=== PATIENT | female | born 1955 | race Caucasian/White ===

== ENCOUNTER 2021-01-12 15:16 | Inpatient (IN) | payer OTHER ==
[~2021-01-12] VITALS: Ht 162.6 cm; Wt 82.8 kg
[2021-01-12 20:01] VITALS: BP 165/77
--- NOTE | 2021-01-12 21:09 | NUR ---
PT IN ROOM IN BED WITH MASK COVERING EYES AND YELLING LOUDLY "HELP HELP HE WILL MURDER ME" WHEN NURSE ENTERED ROOM AT 194-REPORTED BY PREVIOUS SHIFT TO HAVE GOTTEN TO FLOOR AT 1815 AND CAME FROM ER-HAS BEEN YELLING SINCE ARRIVAL TO FLOOR. DID ALLOW VS BUT IS UYNCCOPERATIVE WITH HEAD TO TOE ASSESSMENT AND STATES SHE IS HERE TO GET BACK SURGERY. APPEARS TO BE HAVING AUDITORY HALLUCINATIONS REPORTING THAT SHE SEES A HYDABURG TRYING TO GET IN HER WINDOW. SPEECH IS SLIGHTLY SLURRED-REPORTED TO HAVE RECEIVED SHANAE JURADO IN ER. CONVERSATION RAMBLING,NON-GOAL DIRECTED. DENIES PAIN/DISCOMFORT . 96 HOUR HOLD INITIATED. PLACED ON FALLS PRECAUTIONS-UNABLE TO PROVIDE RELEVENT.COHESIVE MEDICAL HISTORY OR ASSESS GAIT D/T CLINICAL CONDITION AND UNCOOPERATIVE BEHAVIOR. 96 HOUR HOLD INITATED-AND PROVIDED WITH PT RIGHTS AT APPROX 2030.
--- NOTE | 2021-01-13 01:08 | NUR ---
CONTINUES TO YELL OUT FREQUENTLY FROM ROOM-WHEN STAFF ENTER ROOM BEGINS TO SING LOUDLY OR TALK INCOHERENTLY-DID AT ONE POINT REQUEST ICE AND AMBULATED TO BATHROOM WITH SBA X1-GAIT APPEARS STEADY WITHOUT ASSISTIVE DEVICES-BUT IS IMPULSIVE AND ERRATIC MOVEMENT AND BEHAVIORS-I.E ATTEMPTING TO CRAWL UP ON BED NEXT TO HERS WHICH IS ELEVATED AND ATTEMPTED TO SIT ON LEDGE BY WINDOW ALMOST PITCHING FORWARD TO FLOOR-OFFERED PO TRAZADONE SEVERAL TIMES AND REFUSES VEHEMENTLY-I DON'T TAKE ANY MEDICINE "I DON'T WANT TO SLEEP"WHEN PROVIDED WITH RIGHTS PER INVOLUNTARY PATIENT PULLED MASK DOWN OVER HER EYES AND PUT COVERS OVER HEAD AND REFUSED TO TAKE PAPER AND LOOK AT IT SO RIGHTS READ ALOUD BY THIS NURSE. BED EXIT ALARM ACTIVATED WILL MONITOR PER UNIT PROTOCOL.
[2021-01-13 09:01] VITALS: BP 140/72
--- NOTE | 2021-01-13 10:06 | NUR ---
Nutrition: pt admitted with unspecified psychosis, bipolar. PMH: cholecystectomy, COPD, HTN. No intake records yet, new admit. pt reports fair appetite. Ate 90% of breakfast this am. Pt voices appetite down due to a change in her Blood pressure medications. Not picky and likes most foods. No significant weight changes reported. Obese appearance. No height/weight taken on unit. Need to obtain. Will follow for any needed nutrition interventions but consider pt low risk at present.
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
--- NOTE | 2021-01-13 21:44 | NUR ---
PT OBSERVED LAYING ON THE BED, HALLUCINATING. SHE IS TALKING ABOUT HEAVEN AND HELL. STATES 'GET OUT OF MY ROOM" WHENEVER APPROACHED AND ASKED TO MOVE TO HER OWN BED. PT'S BEHAVIOR ESCALATING AND GETTING LOUDER. SHE SAYS 'IF YOU TOUCH ME I WILL KILL YOU". HALDOL X 1 ORDERED AND ADMISTERED. PT RECOGNISED THE OFFICER WHO CAME TO HELP.PT REFUSED TO GET THE SHOT AT FIRST THEN JUST RELAXED AND NO FORCE OR RESTRAINT WAS REQUIRED TO GIVE SHOT. UPON CHECKING ON PATIENT THEREAFTER, PT WAS LYING STILL AND QUIET. SHE TOLD ME " I LOVE YOU, YOU GAVE ME THAT SHOT AND I KNOW AM GONNA " SHE STILL REFUSES TO MOVE TO HER OWN BED. SHE ALSO REFUSES TO TAKE HER HS MEDICATION.
[2021-01-14 12:04] LABS: ALBUMIN 3.5 g/dL (3.4-5.0); CHOLESTEROL 102 mg/dL (<200); DIRECT BILIRUBIN 0.1 mg/dL (<0.1-0.2); HDL CHOLESTEROL 38 mg/dL (>40); LDL CHOLESTEROL 41 mg/dL (<100); SGOT 27 U/L (15-37); SGPT 36 U/L (30-65); TC:HDL 2.7 Ratio (Not establshd); TOTAL BILIRUBIN 0.4 mg/dL (0.2-1.0); TOTAL PROTEIN 6.8 g/dL (6.4-8.2); TRIGLYCERIDE 118 mg/dL (<150); VLDL 24 mg/dL (<40)
--- NOTE | 2021-01-14 15:55 | NUR ---
PT ALERT TO SELF ONLY. PT VERY AGITATED MIDMORNING. REFUSED PO MEDICATIONS THIS SHIFT. PRN IM INJECTION GIVEN FOR AGITATION. PT ALSO WAS PLAYING IN HER FECES. PT DID NOT ANSWER ANY ASSESSMETS QUESTIONS. STAYED IN ROOM THIS SHIFT. ALSO REFUSED MEALS. WILL CONTINUE TO MONITOR.
[2021-01-14 19:52] VITALS: BP 125/62
--- NOTE | 2021-01-15 04:00 | NUR ---
Pt. has rested quietly during the night when checked on during frequent rounds. Went to check on patient to see if she needed some assistance with toileting and she cursed at this nurse. Pt. would not let me near her and told me to get out of her room.
[2021-01-15 05:36] LABS: GLYCOHEMOGLOBIN (HGB A1C) 7.1 % (4.8-5.6)
[2021-01-15 08:00] VITALS: BP 154/81
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
--- NOTE | 2021-01-15 12:43 | NUR ---
Alert and orientated X4. Obstinate this AM. Incontinent, agreed to take shower. Linens obtained. When entered bathroom to give towels ect she tried to wipe toilet paper with stool on staffs face. When asked why she stated, "Because you didn't knock." When given H2O with 1100 med she took a sip and then poured remainder on floor stating, "You told me to do it." Denies SI/HI. Needy at times requesting assistance with ADLs that she has done previously without difficulty. States she can't walk and demands to be pushed in WC but then was found on elevated bed that she climbed onto. Does ambulate with walker when she wants to, regular, steady gait that is sometimes rapid. Breath sounds clear. Reg HR auscultated. Color pink with brisk capillary refill and palpable peripheral pulses. Yellow urine per toilet. Active bowel sounds over large, rounded abdomen. Large soft brown stool per pants. Resistant to getting changed. Assisted with changing clothes, took shower with minimal assistance. With last wipe scant amt reddish drainage per washcloth. Ate minimal amt for lunch.
[2021-01-15 14:38] LABS: HEMOGLOBIN 12.7 gm/dL (12.0-15.0); MCH 28.2 pg (26.0-34.0); MCHC 32.7 g/dL (28.0-37.0); MCV 86.3 fL (80.0-100.0); RBC 4.51 mil/uL (4.20-5.00); RDW 14.8 % (10.5-14.5); WBC 10.5 thou/uL (4.0-11.0)
[2021-01-15 14:54] LABS: CALCIUM 9.3 mg/dL (8.5-10.1); MAGNESIUM 2.3 mg/dL (1.8-2.4); POTASSIUM 3.7 mmol/L (3.5-5.1)
--- NOTE | 2021-01-15 16:27 | NUR ---
SW attempted to meet with Pt 1 on 1. Pt was sleep. Pt did awake to her name however stated she would like to sleep. SW left room so Pt could continue to sleep.
[2021-01-15 19:34] VITALS: BP 116/60
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
--- NOTE | 2021-01-16 00:24 | NUR ---
AWAKE AND WANDERING IN HALLWAYS HAS REQUESTED ICE CREAM MULTIPLE TIMES AND WHEN INFORMED SHE COULD HAVE AN ICE CREAM IF SHE TOOK HER SLEEP MEDICINE SO SHE WOULDN'T BE UP ALL NIGHT -TRAZADONE 50MG REMOVED FROM [facility] PT SHE PUTS IN MOUTH AND THEN SPIT IT OUT ON FLOOR STATING "OH I JUST REMEBERED IM ALLERGIC TO THAT ONE IT MAKES ME THROW UP" "I TOOK IT AT ONE OF THE OTHER HOSPITALS I WAS AT." "-
--- NOTE | 2021-01-16 04:49 | NUR ---
LYING IN BED YELLING FOR ICE CREAM AND WATER-APPEARS TO HAVE BEEN AWAKE SINCE APPROX. O400 AND SITTING ON SIDE OF BED TO BATHROOM ETC.
[2021-01-16 06:03] LABS: HEMATOCRIT 39.5 % (37.0-47.0); HEMOGLOBIN 13.2 gm/dL (12.0-15.0); MCHC 33.5 g/dL (28.0-37.0); MCV 86.6 fL (80.0-100.0); RBC 4.56 mil/uL (4.20-5.00); WBC 10.5 thou/uL (4.0-11.0)
[2021-01-16 06:15] LABS: CALCIUM 9.6 mg/dL (8.5-10.1); CREATININE 1.1 mg/dL (0.6-1.0); MAGNESIUM 2.3 mg/dL (1.8-2.4); POTASSIUM 3.6 mmol/L (3.5-5.1)
--- NOTE | 2021-01-16 08:30 | EKG ---
[place] [address] [facility] [place] [address] ELECTROCARDIOGRAM REPORT Name: GREG REARDON Room #: [facility] ADM IN M.R.#: [id number] Admission: 01/12/21 Attend Phys: Jacques Trimble DO Discharge: Date of : 53 Report #: [id number] [facility] Test Date: 2021-01-14 Test Time: 10:25:59 Pat Name: GREG REARDON Department: Room: [facility] B Gender: F Plumber Assistant: UMAIR : 1955 Requested By: Chloé Harrington Order Number: [id number] MD: Sebastien Guillen Measurements Intervals [place] Rate: 89 P: 55 OR: 153 QRS: -2 QRSD: 80 T: -15 QT: 363 QTc: 442 Interpretive Statements Sinus rhythm Inferior infarct, age indeterminate No previous ECG available for comparison Electronically Signed On 01-16-2021 8:30:22 CDT by Sebastien Guillen [email or web address] <ELECTRONICALLY SIGNED> By: Sebastien Guillen MD, [facility] 01/16/21 0830 1025 1025 Sebastien Guillen MD, FACC /EPI
[2021-01-16 09:21] VITALS: BP 118/63
[2021-01-16 13:38] VITALS: BP 118/63
--- NOTE | 2021-01-16 15:35 | NUR ---
TABBY and Dr. Trimble spoke with pt's about her behavior this past weekend. He again said that she has had several psych admissions for her behaviors. He also mentioned that she has a psych provider at [facility] but does not always follow through with their treatment plan. TABBY advised that when pt clears up, that maybe pt can sign a DPOA form if she chooses to help with any future issues in the hospital with pt. agreed. SW team will continue to follow pt during her stay on this unit.
[2021-01-16 20:00] VITALS: BP 158/80
[2021-01-16 20:08] VITALS: BP 158/80
[2021-01-16 21:41] LABS: URINE BILIRUBIN NEGATIVE (Negative); URINE BLOOD NEGATIVE (Negative); URINE CLARITY CLEAR; URINE COLOR YELLOW; URINE GLUCOSE-RANDOM* NEGATIVE (Negative); URINE KETONES NEGATIVE (Negative); URINE NITRITE-REFLEX NEGATIVE (Negative); URINE PROTEIN (DIPSTICK) NEGATIVE (Negative); URINE SPECIFIC GRAVITY <= 1.005 (1.005-1.035); URINE UROBILINOGEN 0.2 E.U./dl (0.2-1.0)
[2021-01-16 21:55] LABS: URINE LEUKOCYTES-REFLEX 1+ (Negative)
[2021-01-16 22:08] LABS: SQUAMOUS 0-3 Few /LPF (0-3); URINE WBC-REFLEX 6-15 Few /HPF (0-5)
[2021-01-16 22:09] LABS: BACTERIA-REFLEX 1-9 Few /HPF (None Seen); CASTS None Seen /LPF (None Seen); CRYSTALS None Seen /LPF (None Seen); MUCUS 0-3 Light strn/LPF (None Seen); URINE RBC 1-2 Rare /HPF (NONE SEEN)
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
[2021-01-17 09:01] VITALS: BP 96/63
--- NOTE | 2021-01-17 11:07 | NUR ---
SW reviewed pt's nursing notes for discharge planning purposes. SW team will continue to follow pt during her stay on this unit.
--- NOTE | 2021-01-17 17:41 | NUR ---
Assumed pt care at 0700. pt was alert and oriented to person, place and situation. calm and co-operative with care. Assessments completed, vss. pt took meds whole, no difficulty noted. Denies si/hi, denies pain. no sign of acute distress noted upon assessments. AMBULATE with a walker. PARTICIPATED IN GROUPS. make needs known to staff. 3 unit of Insulin administered for Blood sugar of 161. AT this time pt is in the day room relaxing. Blood pressure meds held this AM for low BP. will continue to monitor.
[2021-01-17 20:00] VITALS: BP 118/66
[2021-01-17 20:43] VITALS: BP 118/66
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
--- NOTE | 2021-01-18 06:35 | NUR ---
PATIENT REPORTS FEELING CONSTIPATED. COMPPLAINING OF CRAMPS IN LOWER RIGHT ABDOMEN AND LOW RIGHT BACK. GAVE PRN DOSE MOM. ENCOURAGED PATIENT TO INCREASE FLUIDS.
[2021-01-18 09:37] VITALS: BP 142/67
[2021-01-18 19:09] VITALS: BP 126/56
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
[2021-01-18 23:26] VITALS: BP 126/56
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
--- NOTE | 2021-01-19 02:06 | NUR ---
PATIENT CONTINUING TO COMPLAIN OF HEADACHE. MEDICATED WITH PRN TYLENOL. ASSISTED PATIENT WITH POSITIONING FOR COMFORT, UPPER SIDERAILS X 2. PATIENT STATED SHE FELT SHE COULD REST NOW.
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
--- NOTE | 2021-01-19 06:33 | NUR ---
PATIENT WOKE UP ABOUT 0605 AND BEGAN REQUESTING MEDICATION FOR A HEADACHE AND INDIGESTION. PATIENT WAS AMBULATORY TO THE DAYROOM USING WALKER, PATIENT IS STATING, "I SURE DIDN'T SLEEP VERY MUCH". PULLED MORNING DOSE OF CARAFATE AND PRN DOSE MYLANTA, WENT TO DAYROOM AND PATIENT HAD RETURNED TO HER ROOM. SHE WAS LYING WITH HER HEAD AT THE FOOT OF THE BED, STATING, "I CAN'T GET UP TO TAKE THAT, I'M TO SICK, I"M GONNA VOMIT AND MY HEAD HURTS". INFORMED PATIENT I HAD HER CARAFATE, AND SOME MYLANTA TO EASE HER STOMACH, SHE COULD NOT HAVE TYLENOL FOR ALMOST ANOTHER 2 HOURS. SHE LEANED UP ON HER ELBOW, AND DRANK 1/2 OF THE MYLANTA, AND ONE BITE OF THE CARAFATE, SHE STATED "I COULDN'T EAT ANY MORE SHE WAS TO SICK." PATIENT LAID BACK DOWN TO REST. APPROXIMATELY 10 MINUTES LATER, PATIENT WAS WALKING TO DAYROOM, SMILING, TELLING STAFF GOOD MORNING AND BEING VERY TALKATIVE WITH PEERS.
[2021-01-19 10:12] VITALS: BP 136/57
--- NOTE | 2021-01-19 15:08 | NUR ---
Dr. Trimble asked TABBY to schedule a family meeting with pt's and son. TABBY contacted [place] and scheduled a family meeting for 01/20/2021 @1130am. TABBY team will continue to follow pt during her stay on this unit.
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
[2021-01-19 19:42] VITALS: BP 132/86
[2021-01-19 20:20] VITALS: BP 132/86
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
--- NOTE | 2021-01-20 06:28 | NUR ---
PATIENT RERASSESSED AND FALL SCORE ONLY 30, NO LONGER HIGH RISK FOR FALL. PLAN OF CARE COMPLETED FOR HIGH FALL RISK. PATIENT GAIT STABLE WITH WALKER, PATIENT AWARE OF SURROUNDINGS AND CONSITENTLY USING WALKER TO AMBULATE AND VERBALIZES UNDERSTANDING OF NEED FOR NON-SLIP SOCKS AND WALKER FOR SAFETY.
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
--- NOTE | 2021-01-20 08:23 | NUR ---
Nutritio f/u: No new wt. Intake about 75% or more avg recent meals. Albumin WNL, Cr 1.1. Meds reviewed. BG 123-130. No acute nutrition concerns noted. Continues at low nutrition risk.
[2021-01-20 09:47] VITALS: BP 141/72
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
--- NOTE | 2021-01-20 14:51 | NUR ---
TABBY was told this morning at 11:50 by staff that pt's son and went all the way to [facility]. TABBY received a call from the assistant front desk manager; pt's Koffi was on the phone stating he was here. TABBY asked him to come up so he can see his , and that Dr. Trimble was assessing another pt but could meet with him after. TABBY provided this update to Dr. Trimble. TABBY helped rouse pt out of her room to see her and son. When she saw them she responded "they are not supposed to be here." SW asked why. She did not give an explaination and pt initially looked like she was confused if she can stay and go. She then said "no they are not supposed to be here." She then walked away and said "tell Desmond and Koffi I said hi." Then walked into the common area. Shortly after Dr. Ireland met with both Koffi and Desmond. SW team will continue to follow pt during her stay on this unit.
[2021-01-20 19:56] VITALS: BP 119/72
--- NOTE | 2021-01-20 23:17 | NUR ---
GREG APPEARS WELL GROOMED AND IS DRESSED IN HOSPOITAL GOWNS. SHE HAS YELLOW FALL SHIRT ON AND YELLOW NON SKID SOCKS ON. SHE IS A HIGH FALL RISK AND AMBULATES WITH A WALKER. HER BED IS IN THE LOWEST POSITION AND SIDE RAILS X2. SHE PRESENTS WITH A LABILE AFFECT AND HER MOOD IS INCONGRUENT. SHE APPEARS PARANOID AND ENDORSES DELUSIONS THAT POEPLE ARE POISIONING HER. SHE WAS REORIENTED THAT STAFF ARE HERE TO HELP AND THIS IS A SAFE ENVIORNMENT. SHE REFUSED HER HS MEDICATIONS AFTER THE EDCUATION. SHE STATED "I CANNOT HANDLE ANYMORE OF THEM PILLS. YOU ALL ARE TRYING TO KILL ME". PT. ONCE AGAIN EDUCATED AND REASSURED SHE IS SAFE HERE. SHE WAS COOPEARATIVE WITH HER ASSESSMENT AND CURRENTLY DENIES ANY PAIN. SHE DENIED ANY SI/HI/AH/VH. WHEN ASKED TO DESCRIBE HER MOOD SHE STATED "TIRED". GREG HAS BEEN IN AND OUT OF HER ROOM THROUGHOUT THIS EVENING. WILL CONTINUE TO MONITOR AND FOLLOW PLAN OF CARE. SHE CONTINUES ON Q12 MIN SAFETY ROUNDS PER PROTOCOL.
[2021-01-21 08:55] VITALS: BP 121/55
--- NOTE | 2021-01-21 17:36 | NUR ---
0700 ASSUMED CARE OF PATIENT, PATIENT UP AMB IN SHERIFF WITH WALKER. AMB WITH STEADY GAIT. ATE 40% OF BREAKFAST. MEDICATIONS TAKEN WHOLE WITHOUT DIFFICULTY. PATIENT REFUSING TO ATTEND GROUP, RN HEMATOLOGY AND DR TO PATIENT ROOM. PATIENT LYING IN BED STATING "MY HIP HURTS, I CAN NOT MOVE", "PLEASE HELP ME". PATIENT ASKED TO COME TO GROUP. PATIENT STANDS WITHOUT HELP AND AMB TO GROUP UPSET. PATIENT ATTENDS GROUP FOR A FEW MIN THEN LEAVES. LS CLEAR, BS ACTIVE, NO C/O PAIN AT THAT TIME. REFUSES MEDICATION PER DRS ORDER. PATIENT TELLS DR "I WILL NOT TAKE THAT". SOME PRESENCE OF PARANOIA REGARDING MEDICATIONS AND FEAR OF FAMILY HERE TO SEE HER. BLOOD SUGARS WNL WITH NO INSULIN GIVEN. MOVES FROM PLACE TO PLACE, DENIES ANXIETY. DENIES SI/HI. VS 1730 PATIENT SITTING IN CHAIR IN DAYROOM CALLS WRITE OVER AND STATES "I AM UPSET I COULD NOT ATTEND MY SISTERS , SHE A FEW DAYS AGO". PATIENT THEN GETS UP AND WALKS AWAY.
[2021-01-21 20:25] VITALS: BP 126/69
--- NOTE | 2021-01-22 01:30 | NUR ---
PT AT NURSING STATION COMPLAINING OF PAIN IN HER RIGHT HIP. PT GIVEN PRN TYLENOL 650MG PER ORDER.
--- NOTE | 2021-01-22 01:32 | NUR ---
ASSUMED CARE OF PATIENT AT 1900. GREG APPEARS DISHEVELED AND IS DRESSED IN A HOSPITAL GOWN. SHE PRESENTS WITH A LABILE AFFECT AND DESCRIBES HER MOOD "JUST TRYING TO MAKE IT THROUGH". HER PHYSCIAL ASSESSMENT HAD NO ACUTE CHANGES. SHE DOES COMPLAIN OF SOME RIGHT HIP DISCOMFORT. SHE IS AMBULATING WITH A WALKER AND WEARS NON SKID SOCKS. SHE DENIED ANY THOGUHTS OF SELF HARM OR HARMING OTHERS. SHE DOES REPORT ANXIETY RATED 2/10 AND DEPRESSION 3/10. WHEN PRESENTED WITH HER HS MEDICATION SHE STATED "I AM NOT GOING TO TAKE ANY OF THOSE MEDICAITONS". AFTER SOME ENCOURAGEMENT SHE DID TAKE HER SENNA BUT REFUSED HER LORAZEPAM. AROUND 2200 PT. APPROACHED THIS RN AND ASKED TO TAKE LORAZEPAM. PT GIVEN LORAZEPAM AT THAT TIME. GREG AHS BEEN UP MOST OF THE SHIFT AND OFTEN ASKS FOR FOOD. SHE IS EDUCATED ON FOOD SCHEDULE AND NEED FOR COMPLIANCE WITH HER DIABETES. PT. VERBALIZED UNDERSTANDING. WILL CONTINUE TO MONITOR AND FOLLOW PLAN OF CARE. Q 12 MIN SAFETY ROUNDS PER PROTOCOL.
[2021-01-22 09:49] VITALS: BP 124/66
[2021-01-22 10:26] VITALS: BP 124/66
--- NOTE | 2021-01-22 13:45 | NUR ---
1300 RESUMMED CARE FROM OVERNIGHT SHIFT THIS AM, PATIENT IN DAY ROOM WAITING ON BREAKFAST. PATIENT ALERT ORIENTED TIMES 3 PATIENT CALM COOPERATIVE TOOK MEDICATION WITHOUT INCIDENCE. PATIENT DENIES SI/HI/AH/VH AT PRESENT PATIENTS ABDOMEN SOFT BOWEL SOUNDS PRESENT. PATIENTS LUNGS CLEAR PATIENT HAS BEEN PARTICIPATING IN GROUPS. WILL CONTINUE TO MONITOR PATIENT FOR SAFETY AND BEHAVIORS.
[2021-01-22 19:06] VITALS: BP 131/75
[2021-01-22 20:01] VITALS: BP 131/75
--- NOTE | 2021-01-23 03:37 | NUR ---
Assumed care on 01/22/21 @ 19:15, seated in the day room. A&Ox4 when offered medications, yelled out, I aint taking no lithium. Reoriented to the medications offered, she was able to swollow meds whole with water, until she came to tylenols. She refused to take, and asked that the tablets be cut in half. This was done and offered with pudding. the patient sucked the pudding off the tablets and spit them out. She asked for crushed in applesauce, which was provided. Tylenol 650 for back pain of 6/10, upon follow up assessment was noted to be sleeping. In bed, eyes closed, respirations even and unlabored. Will continue to monitor as per unit protocol for safety and comfort.
[2021-01-23 09:11] VITALS: BP 137/111
[2021-01-23 09:16] VITALS: BP 132/82
--- NOTE | 2021-01-23 10:38 | NUR ---
1030 RESUMMED CARE FROM OVERNIGHT SHIFT THIS AM, PATIENT IN DAY ROOM SITTING QUIET. PATIENT ATE BREAKFAST TOOK MEDICATION WITHOUT INCIDENCE PATIENT ALERT ORIENTED TIMES 4. PATIENT DENIES SI/HI/AH/VH AT PRESENT PATIENTS LUNGS CLEAR BOWEL SOUNDS PRESENT. PATIENT CALM COOPERATIVE PARTICIPATES IN GROUPS PATIENT DENIES ANXIETY OR DEPRESSION. WILL CONTINUE TO MONITOR PATIENT FOR SAFETY AND BEHAVIORS.
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
[2021-01-23 19:54] VITALS: BP 140/70
--- NOTE | 2021-01-24 04:07 | NUR ---
GREG APPEARS WELL GROOMED AND IS DRESSED APPROPRIATE. SHE PRESENTS WITH A FULL AFFECT AND DESCRIBES HER MOOD "GETTING BETTER". SHE DENIES ANY THOUGHTS OF SELF HARM OR HARMING OTHERS. SHE REPORTED ANXIETY RATED 10/10 AND DEPRESSION RATED 6/10. SHE DENIED ANY AUDITORY OR VISUAL HALLUCINATIONS. HER PHYSICAL ASSESSMENT WAS NEGATIVE, LUNG SOUNDS CLEAR, HEART SOUNDS S1 S2 AND REGULAR, BOWEL SOUNDS ACTIVE AND ABDOMEN ROUND AND NON TENDER. GREG DOES REPORT SOME PAIN IN HER RIGHT HIP AND RATES IT 5/10. SHE WAS GIVEN PRN TYLENOL 650MG AND AURELIA-MERINO CREAM. MEDICATIONS WERE EFFECTIVE. SHE IS ALERT AND ORIENTED X 4. WILL CONTINUE TO MONITOR AND FOLLOW PLAN OF CARE. Q 12 MIN CHECKS PER PROTOCOL.
[2021-01-24 09:48] VITALS: BP 142/107
--- NOTE | 2021-01-24 12:21 | NUR ---
TABBY contacted Denise again. No answer. TABBY left a msg. SW team will continue to follow pt during her stay on this unit.
--- NOTE | 2021-01-24 14:47 | NUR ---
0700 ASSUMED CARE OF PATIENT, PATIENT AMB WITH WALKER WITH STEADY GAIT. MEDICATION TAKEN WHOLE WITHOUT DIFFICULTY. LS CLEAR, BS ACTIVE, NO C/O PAIN AT THAT TIME. NO DELLUSION NOTED. PATIENT CALM AND COOPERATIVE. DENIES SI/HI. WILL CONTINUE TO OBSERVE
[2021-01-24 19:43] VITALS: BP 156/99
--- NOTE | 2021-01-25 05:17 | NUR ---
01-24-21 CARE TRANSFERRED 1899 OBSERVED PT SITTING IN RECLINER IN DAY ROOM. LATER PT AAOX4, VSS, RR EVEN AND NONLABRED ON RA. PT DENIES SI/HI, PT REPORTS PAIN IN RIGHT HIP AND SCORES 8 ON 0-10 SCALE. PT PRESENTS PLESANT, CALM AND COOPERATIVE, BUT BECOMES TEARFUL WHEN SPEAKING ABOUT HER EXHUSBAND. DURING MEDICATION ADMIN PT HAD NO DIFFICULTIES TAKING PILLS WITH WATER. LATER PT PIAN WAS REASSESSED AND PT SCORED 4 ON 0-10 SCALE, PT BED WAS ADJUSTED FOR COMFORT. LATER PT REPORTED NOT BEING ABLE TO SLEEP AND PRN WAS GIVEN. LITTLE LATER PT REPORTED HER ROOM WAS COLD, TEMP WAS ADJUSTED FOR PT COMFORT. LATER NOTED PT RESTING WITH EYES CLOSED. ZERO S/S OF ACUTE DISTRESS NOTED, PT WILL CONTINUE TO BE MONITOR PER [facility] PROTOCOL.
[2021-01-25 09:03] VITALS: BP 150/79
[2021-01-25 09:31] VITALS: BP 150/79
--- NOTE | 2021-01-25 11:08 | NUR ---
TABBY and Dr. Trimble met with pt to establish a d/c plan. Dr. Trimble asked pt if it is still her position to not go home with her son and . Pt said she does not want to go there, and instead woudl like to go to her daughter Denise's house. SW explained that she has called Denise repeatedly and left several messages, but she has not returned any of SW calls. Pt told SW to keep trying. SW asked if she cannot get ahold of Denise, is pt prepared to go to a homeless usp. Initially pt said that's fine. SW then provided education on what homeless shelters are like, and pt initially wanted to and then recanted that. Dr. Trimble explained that pt will discharge home, and pt can go wherever she chooses after that. She agreed. Dr. Trimble agreed to discharge on Saturday. SW team will continue to follow pt during her stay on this unit.
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
[2021-01-25 19:04] VITALS: BP 141/84
--- NOTE | 2021-01-26 04:26 | NUR ---
01-25-21 CARE TRANSFERRED 1899 OBSERVED PT WALKING IN HALLWAY WITH WALKER, GAIT STEADY. LATER PT AAOX4, VSS, RR EVEN AND NONLABORED ON RA. PT DENIES SI/HI AND REPORTS PAIN IN RIGHT HIP SCORES 8 ON 0-10 SCALE. PT PRESENTS PLESANT, CALM AND COOPERATIVE. PT COMMUNICATING AND OFTEN HAS FLIGHT OF IDEAS. LATER PT REPORTED ABOUT HER DAUGHTER NOT HAVING ROOM AND SHARED HER CONCERNS ABOUT WHERE SHE IS GOING. PT REPORTED WHAT HCP AND REGISTERED NURSE BEH[facility]IORAL HEALTH SPOKE ABOUT. LATER PT CAME BACK AND SPOKE AGAIN AND STATED SHE WILL OPEN COMMUNICATION WITH AND SON. ZERO S/S OF ACUTE DISTRESS NOTED, PT WILL CONTINUE TO BE MONITOR PER [facility] PROTOCOL.
[2021-01-26 09:50] VITALS: BP 125/70
[2021-01-26 10:16] VITALS: BP 125/70
--- NOTE | 2021-01-26 10:46 | NUR ---
RT Progress Note- Ira has continued to be active in recreation therapy groups during this review period. She is socially appropriate overall and presents little delusions, in which she is easily redirected from. Ira continues to specifically request to listen to music which she very much enjoys. MATE CHIEF will continue to encourage this participation.
--- NOTE | 2021-01-26 11:37 | NUR ---
1135 RESUMMED CARE FROM OVERNIGHT SHIFT THIS AM, PATIENT IN ROOM LYING QUIET. PATIENT CAME TO DAY ROOM ATE BREAKFAST TOOM MEDICATION WITHOUT INCIDENCE. PATIENT ALERT ORIENTED TIMES 3 PATIENT PATIENTS ABDOMEN SOFT BOWEL SOUNDS PRESENT. PATIENTS LUNGS CLEAR PATIENT PARTICIPATES IN GROUP PATIENT WANTS TO KNOW WHEN SHE CAN LEAVE. PATIENT DENIES SI/HI/AH/VH AT PRESENT WILL CONTINUE TO MONITOR PATIENT FOR SAFETY AND BEHAVIORS.
[2021-01-26 19:15] VITALS: BP 123/78
[2021-01-26 20:49] VITALS: BP 123/78
--- NOTE | 2021-01-27 04:08 | NUR ---
Upon assessment patient sitting in her room at approx 2015 hrs on 01/26/21. Patient is alert/oriented x4. She has good eye contact and is pleasant. Pt is well groomed. She is wearing yellow t-shirt and socks and is ambulating with walker. She denies any Anxiety, depression, SI/HI, hallucinations. She states she is very happy because she had a discussion with her hsb and son and they are wanting her to come back home. She states her son is disabled and lives at home. She rates chronic hip pain 7/ but declines pain med atthat time. She later did come to the desk and ask for Tylenol and it was administered. Pt did come to Nurse's area once and ask if she could have a few packets of crackers, stated she couldn't sleep because she was hungry. patient given some crackers and she returned to bed after eating them in the day room. Patient declined her Senna tablets this pm and stated she didn't need them because she had been having regular bm's. This Nurse explained that the Senna will help her continue to be regular and she still declined. Pt also stated that she was given a medication around 5pm this shift that made her "feel drugged" and she stated she does not want to take that medication anymore. Patient physical assessment was unremarkable and she required no coverage of insulin- BS 99. Patient was social with peers and staff as well as compliant with all care this shift. Will continue to monitor and follow plan of care. Q 12 min safety checks per protocol.
--- NOTE | 2021-01-27 08:40 | NUR ---
TABBY contacted Denise. No answer. TABBY left a msg. SW team will continue to follow pt during her stay on this unit.
--- NOTE | 2021-01-27 09:24 | NUR ---
Nutrition followup: pt continues on [facility] unit with unspecified psychosis. Eats well, 75-100% of meals on regular diet. BG controlled. No weight loss. BM 01/26 Continue as low nutrition risk.
[2021-01-27 09:30] VITALS: BP 151/61
--- NOTE | 2021-01-27 19:36 | NUR ---
0700 ASSUMED CARE OF PATIENT, PATIENT IN BED AT THAT TIME. PATIENT ASKED TO COME OUT FOR BREAKFAST. AMB WITH STEADY GAIT USING WALKER. DENIES PAIN AT THAT TIME, LS CLEAR, BS ACTIVE. LBM 01/27/21. ABD SOFT AND ROUND. MEDICATION TAKEN WHOLE WITHOUT DIFFICULTY. AFTERNOON MEDS REFUSED PATIENT STATES "MEDICATION MAKES ME FEEL BAD". BOTH LITHIUM AND OLANZAPINE REFUSED TODAY. LATER PATIENT ASKS FOR ROOM TO BE OPENED AND STATES "IF YOU OPEN IT I MIGHT TAKE MY MED" THEN SAYS "MAYBE I WILL AND MAYBE I WONT" CONTINUES THIS SAYING MULTIPLE TIMES UNTIL LINE SERVICE TECHNICIAN WALKS AWAY. PATIENT TO ROOM AND LAYS DOWNS AFTER LAST MEAL.
[2021-01-27 21:00] VITALS: BP 136/76
--- NOTE | 2021-01-28 03:06 | NUR ---
Patient initial assessment at approx 2100 hrs. Patient in day room alert/oriented x4, good eye contact and well groomed. She denied any complaints other than chronic right hip pain rated 10/10. Patient given Tylenol for pain and was able to sleep later. She has been compliant with all care, declined her pm Senna, stated she didn't need it. She has been social with staff and had no behaviors this shift. Will continue to monitor and follow plan of care. Q 12 min safety checks per protocol.
[2021-01-28 08:42] VITALS: BP 159/70
--- NOTE | 2021-01-28 16:41 | NUR ---
0700 ASSUMED CARE OF PATIENT, PATIENT IN BED AT THAT TIME. AMB WITH STEADY GAIT. DENIED PAIN THIS AM. MEDICATION TAKEN WHOLE WITHOUT DIFFICULTY. LS CLEAR, BS ACTIVE. ABD SOFT AND ROUND. PATIENT REFUSING SOME OF HER MEDICATION (SEROQUEL AND LITHIUM). PATIENT CALM AND COOPERATIVE. DENIES SI/HI.
[2021-01-28 21:30] VITALS: BP 119/51
--- NOTE | 2021-01-29 04:53 | NUR ---
ASSUMED CARE OF PT AT APPROX 1910 HRS ON 01/28/21. PT ALERT/ORIENTED X4. PT AMBULATING WITH WALKER, STEADY GAIT WEARING YELLOW T-SHIRT, YELLOW SOCKS. GOOD EYE CONTACT AND PLEASANT. PT DENIED ANY DEPRESSION, ANXIETY, SI/HI,HALLUCINATIONS. SHE DOES C/O CHRONIC LOWER BACK PAIN 05/12. SHE STATES SHE IS EXCITED TO POSSIBLY GO HOME EITHER SATURDAY OR SATURDAY. PT IS WELL GROOMED AND COMPLIANT WITH ALL CARE. SHE CONTINUES TO DECLINE HER PM SENNA, STATES SHE DOES NOT NEED IT. WILL CONTINUE TO MONITOR AND FOLLOW PLAN OF CARE. Q 12 MIN SAFETY CHECKS PER PROTOCOL.
[2021-01-29 08:55] VITALS: BP 129/61
--- NOTE | 2021-01-29 15:33 | NUR ---
0700 ASSUMED CARE OF PATIENT, PATIENT IN BED AT THAT TIME. AMB WITH WALKER WITH STEADY GAIT. MEDICATION TAKEN WHOLE WITHOUT DIFFICULTY. DOES REFUSE OLANZAPINE PO IN AM UTILIZATION REVIEW COORDINATOR EXPLAINS TO PATIENT ABOUT A IM INJ BACKUP WHEN REFUSING PO MED. PATIENT TAKES PO MED FINE. PRESENT IN GROUP THIS AM. PATIENT CALM AND COOPERATIVE, DENIES SI/HI. LS CLEAR, BS ACTIVE. WILL CONTINUE TO OBSERVE
[2021-01-29 19:25] VITALS: BP 128/70
[2021-01-29 21:22] VITALS: BP 128/70
--- NOTE | 2021-01-29 21:51 | NUR ---
Assumed care at 1910 from day shift nurse, Pt was resting in her room. Pt is alert and orient x 4, denies SI/HI, auditory or visual halluncination. Pt alternates between ambulating with her walker in the hallway, sitting in the dining room or resting in her room. Affect is pleasant and she interacts with peers and staff appropriately, holds a conversation and we discuss different country stars, Pt is looking forward to being able to d/c soon. Pt lung sounds are clear, Abd soft/nontender BS + x 4 Q, small bm on 01/28/21, pulses +, denies pain currently, Pt discussed with this nurse that she does not like taking the Olanzapine because she feels it makes her have leg tremors. Discussed with pt to discuss this with the Dr. Also pt voiced considering trying the Holly vs the Olanzapine, encouraged pt to voice all of this with the Dr. will also pass on in report for follow up. Will continue to monitor pt throught out shift.
[2021-01-30 08:52] VITALS: BP 137/67
[2021-01-30 10:33] VITALS: BP 137/67
--- NOTE | 2021-01-30 15:25 | NUR ---
Assumed pt care at 0700. pt was alert and oriented x4. Assessments completed, vss. took meds whole, no difficulty noted. ambulates with a walker. Denies si/hi, denies pain. No sign of acute distress noted upon assessments. participated in groups. NO BM noted this shift. calm and co-operative with care. nO INSULIN ADMINISTERED AT THIS TIME. mEDS ADMINISTERED ORDERED. AT this time pt is watching TV in the day room. will continue to monitor.
[2021-01-30 19:14] VITALS: BP 136/58
--- NOTE | 2021-01-31 00:46 | NUR ---
Assumed care of patient at 1900 hrs. Patient observed in her bed lying on left side. Patient alert/oriented x4. Good eye contact and smiling. She denied any depression, SI/HI, anxiety, hallucinations. She did c/o chronic right lower back pain 7/ and new abd pain 7/. Patient states she was trying to move a table and the recliner in the day room today and "pulled something in my stomach." Patient states she plans on resting in her bed the rest of the night due to the new abd pain. She did come out and eat hs snack, then retired back to bed. She continues to decline the Senna tablets, but did take Tylenol for her back pain. She has been social with staff and answered questions appropriately. she comtinues to ambulate with walker, wears yellow shirt and socks. Has been well groomed this shift. Will continue to monitor and follow plan of care. Q 12 min safety checks per protocol.
[2021-01-31 09:18] VITALS: BP 111/60
--- NOTE | 2021-01-31 11:33 | NUR ---
SW received a call from Koffi confirming he needs to be at [facility] at 1300 for a family meeting. SW received a vm from Yeny Guajardo with [facility] stating that pt can call her line directly to schedule an intake of [phone]. SW team will continue to follow pt during her stay on this unit.
[2021-01-31] MEDS ORDERED: STIMULANT LAXA1 EACH PO (12:28)
[2021-01-31] MEDS ORDERED: ZYPREXA 5 MG TAB5 M1 PO (12:28)
--- NOTE | 2021-01-31 12:37 | NUR ---
Received awake on bed. On room air. Vital signs stable. On carb controlled diet- tolerating well; no nausea, no vomiting and no abdominal pain noted. On blood sugar monitoring, taken and recorded accordingly. Pt refusing to take PO olanzapine this AM, as well as IM PRN just incase pt refuses despite explanantion to patient; charge nurse informed re: this- pt able to take PO Olanzapine. On blood sugar monitoring, taken and recorded accordingly. Continent of bowel and bladder, able to go to the toilet. No complains of pain made during assessment; no complains of chest pain, crushing sensation and heaviness. Fall bundle in place. Pt very keen to go home today; informed pt a/w physician's orders. No verbalizations of SI/HI. No visual, auditory and tactile hallucinations. Pt's son called this PM to verify pt's pharmacy since there's none ordered- as per PT's son [facility]- entered in [employer] and Dr Trimble informed re: this. Assistance from Charge nurse obtained re: discharging patient as this RN does not work in this floor. To continue monitoring patient.
[2021-01-31 12:44] VITALS: BP 111/60
--- NOTE | 2021-01-31 14:18 | NUR ---
TABBY D/C NOTE TABBY created a SW handout for pt and explained it to pt, her , and son. Both TABBY and Dr. Trimble spoke with pt and family and urged that she must attend services at [facility] and remain on her meds. Both family and pt agreed and stated she will contact [facility] as soon as they get home. TABBY faxed pt's d/c docs to [facility]. TABBY will file docs in pt's hospital file. No other needs for SW team to address at this time.
--- NOTE | 2021-02-01 23:08 | D ---
[facility] [place] [address] DISCHARGE SUMMARY Name: GREG REARDON Room #: 522B-B [facility] IN M.R.#: [id number] Admission: 01/12/21 Attend Phys: Leticia Trimble DO Discharge: 01/31/21 Date of : 53 Report #: [id number] THIS REPORT FOR: cc: Dani Jessica MD, Richard MD Kerstein,Leticia Carlson DO ~ DOC #: [id number] LETICIA Trimble DO DATE OF SERVICE: 01/31/2021 INPATIENT PSYCHIATRIC DISCHARGE SUMMARY ATTENDING PSYCHIATRIST: Leticia Trimble DO. PRODUCT MGMT DEV MANAGER: Bruce Mata MD. DISCHARGE DIAGNOSES: 1. Bipolar 1 disorder, most recent episode manic, severe with psychotic features, improved. 2. Noncompliance with recommended medications. 3. Hypertension. 4. Chronic obstructive pulmonary disease. 5. Gastroesophageal reflux disease. 6. History of a single seizure disorder, gait disturbance. DISPOSITION: The patient is being discharged to her home, she shares with her and son. ACTIVITY LEVEL: As tolerated. No alcohol, no illicit drugs. The patient denied smoking to me. She does utilize a walker at home. DISCHARGE MEDICATIONS: As follows: The olanzapine regimen I had to change at the last minute due to request from the pharmacy that her insurance would only allow once a day administration, so instead of 7.5 mg twice a day, I made her olanzapine regimen 10 mg oral at bedtime and she has a 30-day supply. Senna/docusate 2 tablets oral twice daily for bowel motility. The patient is urged to get an intake with [facility]. The patient has to arrange this on her own as the [facility] would not let social group worker schedule an appointment. Recommend diabetic 2000 calorie diet due to diabetes. The patient was given crisis hotline information. LABORATORY DATA: Most recent laboratories on 01/16/2021 with an H and H of 13.[address] [address] DISCHARGE SUMMARY Name: GREG REARDON Room #: 522B-B [facility] IN ..#: [id number] Admission: 01/12/21 Attend Phys: Leticia Trimble, Discharge: 01/31/21 Date of : 53 Report #: [id number] and 39.5, white count 10.5, platelet count 285. Chemistry: Sodium 137, potassium 3.6, chloride 99, bicarbonate 24, anion gap 14, BUN 50, creatinine 1.1, estimated GFR 50, glucose 167. Hemoglobin A1c 7.1, calcium 9.6, magnesium 2.3, total bilirubin 0.4, direct bilirubin 0.1, AST 27, ALT 36, alkaline phosphatase 111, total protein 6.8, albumin 3.5. Triglycerides 119, cholesterol 102, LDL 41, HDL 38, which is slightly low. B12 normal at 648. TSH 0.44, which is normal. Urinalysis on 01/16/2021 was largely negative. Toxicology, she had a lithium level of 0.4, which was on 01/26/2021 and after that she refused to take it. There was a urine culture triggered, but it was contaminated. The patient did not have signs of infection. EKG done this admission showed a QTC of 442, rate of 89, sinus rhythm. REASON FOR ADMISSION: Back around 01/12/2021, a 65-year-old female sent to us from [facility] reporting "a jackal sat on her back seeking surgery for her back, trying to eat her heart out." HOSPITAL COURSE: The patient was admitted to [facility] Unit. Initially, the patient was not nearly as disorganized, manic. Initial week after I admitted her, she had symptom presentation I felt to be of psychosis, I started her on olanzapine regimen. She still had some prominent jaclyn, I started her on lithium. than issues about her compliance. We had a couple of family meetings, her and her son, who has psychiatric disability. I have urged her to be compliant. There was a period of time when the patient was even refusing to go home with her and her son thinking they were , bad things like that. The last weekend before admission, her behavior was good. No SI, no HI, no assaultive behavior. Time to step down. PHYSICAL EXAMINATION: VITAL SIGNS: On day of discharge, temperature 35.6, pulse 75, respirations 18, BP 111/60, O2 sat 97% on room air. MUSCULOSKELETAL: Assisted gait with walker, fairly normal station. MENTAL STATUS EXAMINATION: This is a well-developed, mildly obese female, appearing her stated age. Attention fair. Concentration fair. Speech normal rate, rhythm and tone. Thought process: Linear and goal oriented. Thought content: Focused on discharge. No psychomotor agitation or psychomotor retardation. Mood and affect was congruent, euthymic. Denied SI, HI. Denied auditory, visual, or tactile hallucinations. Memory not formally tested. Insight limited. Judgment limited. Fund of knowledge below average. Prognosis for this patient is guarded to poor given her last visit in [facility] in 2018. Hopefully, she will improve her behavior. [address] [address] DISCHARGE SUMMARY Name: GREG REARDON Room #: 522B-B [facility] IN M.R.#: [id number] Admission: 01/12/21 Attend Phys: Leticia Trimble DO Discharge: 01/31/21 Date of : 53 Report #: [id number] DO BENIGNO Purcell/ZURDO/KISHOR <ELECTRONICALLY SIGNED> By: Leticia Trimble DO 02/01/21 [id number] Leticia Trimble DO /nt
== END 2021-01-31 13:20 | disposition home or self-care (01) | DRG 885 ==
LOC: SBH
PROVIDERS: Internal Medicine; ADMIT Psychiatry & Neurology Psychiatry; ATTEND Psychiatry & Neurology Psychiatry
DX: F31.2 Bipolar disorder, current episode manic severe with psychotic features (principal); N18.30 Chronic kidney disease, stage 3 unspecified; F29 Unspecified psychosis not due to a substance or known physiological condition; J44.9 Chronic obstructive pulmonary disease, unspecified; E66.9 Obesity, unspecified; K21.9 Gastro-esophageal reflux disease without esophagitis; M25.559 Pain in unspecified hip; M54.9 Dorsalgia, unspecified; M85.88 Other specified disorders of bone density and structure, other site; I12.9 Hypertensive chronic kidney disease with stage 1 through stage 4 chronic kidney disease, or unspecified chronic kidney disease; G40.909 Epilepsy, unspecified, not intractable, without status epilepticus; E11.22 Type 2 diabetes mellitus with diabetic chronic kidney disease; Z91.14 Patient's other noncompliance with medication regimen; Z68.31 Body mass index [BMI] 31.0-31.9, adult; Z88.8 Allergy status to other drugs, medicaments and biological substances; Z91.040 Latex allergy status; Z90.49 Acquired absence of other specified parts of digestive tract; Z87.891 Personal history of nicotine dependence; Z79.899 Other long term (current) drug therapy
CPT/HCPCS: 10880